=== PATIENT | female | born 1995 | race African-American/Black ===

== ENCOUNTER 2020-11-03 06:59 | Emergency (ER) | payer OTHER ==
[2020-11-03] MEDS ORDERED: NAPROXEN500 MG PO (08:37)
[2020-11-03] MEDS ORDERED: ROBAXIN750 MG PO (08:37)
== END 2020-11-03 09:07 | disposition home or self-care (01) ==
LOC: FER 06:59
DX: S16.1XXA Strain of muscle, fascia and tendon at neck level, initial encounter (principal); M25.511 Pain in right shoulder; M54.9 Dorsalgia, unspecified; R51.9 Headache, unspecified; V49.40XA Driver injured in collision with unspecified motor vehicles in traffic accident, initial encounter; Y92.410 Unspecified street and highway as the place of occurrence of the external cause
CPT/HCPCS: 72040; 73030

== ENCOUNTER 2021-05-21 06:12 | Emergency (ER) | payer OTHER ==
[~2021-05-21 06:12] MED LIST: NAPROXEN500 MG PO; ROBAXIN750 MG PO
[2021-05-21 07:11] LABS: INFLUENZA A NAA NEGATIVE (NEGATIVE)
[2021-05-21 07:13] LABS: CORONAVIRUS 2019 SARS-COV-2 POSITIVE (NEGATIVE)
[2021-05-21] MEDS ORDERED: NAPROXEN500 MG PO (07:46)
[2021-05-21] MEDS ORDERED: ONDANSETRON ODT4 MG PO (07:46)
== END 2021-05-21 07:55 | disposition home or self-care (01) ==
LOC: FER 06:12
PROVIDERS: Emergency Medicine
DX: U07.1 COVID-19 (principal); F17.210 Nicotine dependence, cigarettes, uncomplicated
CPT/HCPCS: 99284; J1885; U0002